=== PATIENT | male | born 1950 | race Caucasian/White ===

== ENCOUNTER 2018-10-29 04:03 | Inpatient (IN) | payer MEDICARE, BC ==
[~2018-10-29] VITALS: Ht 193 cm; Wt 111.4 kg
--- NOTE | ~2018-10-29 | EC ---
PATIENT:TORIBIO DOWNEY DATE OF SERVICE: 10/29/18 SEX: M MEDICAL RECORD: [id number] DATE OF : 54 LOCATION:D.MS [facility] AGE OF PATIENT: 68 ADMISSION DATE: 10/29/18 REFERRING PHYSICIAN: INTERPRETING PHYSICIAN: SHIRLEY PALOMO MD ECHOCARDIOGRAM REPORT ECHO CHARGES 4 ECHO COMPLETE Date: 10/30/18 CLINICAL DIAGNOSIS: CHEST PAIN, SURGERY CLEARENCE, HX CAD/STENTS ECHOCARDIOGRAPHIC MEASUREMENTS (adult normal given) AC root (d.<3.7cm) 3.5 cm LV Septum d (<1.2 cm> 1.3 cm Valve Excursion 2.2 cm LV Septum (systole) 1.5 cm Left Atria (s.<4.0cm> 3.8 cm LVPW d(<1.2cm) 1.2 cm RV (d.<2.3cm) 5.1 cm LVPW (sytole) 1.8 cm LV diastole(<5.6CM) 5.2 cm MV E-F(>70mm/sec) cm LV systole 3.6 cm LVOT Diameter 1.9 cm MV exc.(>10mm) 1.3 cm Est.ejection fraction (50-75%) % DOPPLER: LVIT cm/sec A 77.0 cm/sec E 68.0 cm/sec LA cm/sec RVSP 23 mmHg LVOT 101 cm/sec AOP1/2T m/s Asc. Ao 145 cm/sec RVOT 104 cm/sec RA cm/sec PA 143 cm/sec AV Gradient Peak 8.38 mmHg AV Mean 5.50 mmHg AV Area 2.0 cm MV Gradient Peak 3.49 mmHg MV Mean 1.80 mmHg MV Area cm COMMENTS: Tree Planter: Isaias VEGA Dog Track Kennel Manager: 1 Dr. Palomo TAPE# PACS Pericardial Effusion N DATE OF SERVICE: 10/30/2018 FINDINGS: 1. Left ventricular chamber size is within normal limits. Left ventricular systolic function is normal. Overall ejection fraction is estimated at 55%. 2. Left atrium is within normal limits at 3.8 cm. Right atrium and right ventricular chamber sizes are mildly dilated. 3. Valvular structures have normal structure and motion. 4. Doppler interrogation reveals trace mitral regurgitation and trace tricuspid regurgitation. No other valvular insufficiency or stenosis. Pulmonary systolic ECHOCARDIOGRAM REPORT [id number] NASREEN,MARLIN J pressure is normal, estimated at 23 mmHg. 5. No evidence of pericardial effusion or left ventricular thrombus. TRANSINT:[id number] Voice Confirmation ID: [id number] DOCUMENT ID: [id number] SHIRLEY PALOMO MD CC: [id number] DICTATION DATE: 10/30/181707 AUTOMATION MACHINE OPERATOR: 10/30/18 190 ADM IN [facility] [address] [id number]
--- NOTE | ~2018-10-29 | CN ---
PATIENT NAME:TORIBIO DOWNEY MEDICAL RECORD: [id number] : 54 LOCATION:D.MS [facility] ADMIT DATE: 10/29/18 ACCOUNT: [id number] CONSULTING PHYSICIAN: SHIRLEY ESTEVES MD REFERRING PHYSICIAN: YORDY LAM MD DATE OF CONSULTATION: 10/30/2018 DIAGNOSES: 1. Angina. 2. Coronary artery disease. 3. Preoperative evaluation. 4. Previous percutaneous transluminal coronary angioplasty stent. 5. Hyperlipidemia. HISTORY OF PRESENT ILLNESS: This is a gentleman who is followed at the [facility]. All his studies have been done at the [facility]. He does have a history of coronary artery disease. He has a chronic stable anginal picture. However, nuclear stress testing was done within the last month and this was normal. His blood pressure is in the 100s, his heart rate is in the sinus rhythm in the 90s. He is not having any chest pain currently. PHYSICAL EXAMINATION: GENERAL APPEARANCE: Well-nourished, well-developed, appears stated age. Level of distress, comfortable. PSYCHIATRIC: Mental status, alert, normal affect. Orientation, oriented to time, place and person. EYES: Lids and conjunctiva, noninjected. No discharge, no pallor. ENT: Lips, teeth, gums, normal dentition. Oropharynx, no cyanosis, no pallor. NECK: Carotid arteries, bilateral normal upstroke, no bruits, no thrills. JUGULAR VEINS: No jugular venous pressure or distention. CERVICAL LYMPH NODES: Nontender, nonenlarged. THYROID: Not enlarged. Nontender. No nodules. LUNGS: Respiratory effort, unlabored. CHEST: Normal curvature. No thoracic deformity. No chest wall tenderness. Percussion, resonant. Auscultation, clear. No wheezes, no rales, no rhonchi. CARDIOVASCULAR: Precordial exam, nondisplaced. No heaves or pericardial thrills. Rate and rhythm, regular. Heart sounds, normal S1, normal S2. No S3, no gallop, no rub. Systolic murmur, not heard. Diastolic murmur, not heard. EXTREMITIES: No cyanosis, no edema. Peripheral pulses, full and equal in all extremities, except as noted. No bruits appreciated. ABDOMEN: Soft, nondistended. Normal aorta. No bruit. Nontender. No masses. Liver, nontender, no hepatomegaly. Spleen, nontender, no splenomegaly. MUSCULOSKELETAL: No joint tenderness. No joint swelling. No erythema. NEUROLOGICAL: Normal gait, normal strength, normal tone. SKIN: Warm and dry. OVERALL IMPRESSION: Chronic stable angina, normal nuclear stress test recently, this puts in low risk from a cardiac standpoint with the surgery. TRANSINT:[id number] Voice Confirmation ID: [id number] DOCUMENT ID: [id number] CONSULT REPORT [id number] TORIBIO DOWNEY JEFFREY MD CC: [id number] DICTATION DATE: 10/30/18 1154 GRAIN DRIER OPERATOR: 10/30/18 1318 ADM IN [facility] [address] [id number]
[2018-10-29] MEDS ORDERED: NEURONTIN600 MG PO ×2 (04:11)
[2018-10-29] MEDS ORDERED: LIPITOR40 MG PO (04:12)
[2018-10-29 05:10] LABS: BASOPHILS 0.1 % (0-2); EOSINOPHILS 0.3 % (0-7); HEMATOCRIT 46.5 % (42.0-54.0); HEMOGLOBIN 15.7 g/dL (13.5-17.5); IMMATURE GRANULOCYTES 0.5 % (0-5); LYMPHOCYTES 12.5 % (15-50); MCH 30.3 pg (26.0-34.0); MCHC 33.8 g/dL (31.0-37.0); MCV 89.6 fL (80.0-100.0); MEAN PLATELET VOLUME 9.5 fL (7.4-10.4); MONOCYTES 4.9 % (2-11); NEUTROPHILS 81.7 % (40-80); PLATELET COUNT 299 10x3/uL (130-400); RBC 5.19 10x6/uL (4.20-6.10); RDW 13.4 % (11.5-14.5)
[2018-10-29 05:15] LABS: ALBUMIN 4.2 g/dL (3.4-5.0); ALKALINE PHOSPHATASE 166 U/L (46-116); ALT (SGPT) 46 U/L (10-68); BILIRUBIN - TOTAL 0.42 mg/dL (0.2-1.3); CALC OSMOLALITY 285 mosm/kg (275-300); CARBON DIOXIDE 27.9 mmol/L (21.0-32.0); CHLORIDE - SERUM 103 mmol/L (98-107); CREATININE - SERUM 1.2 mg/dL (0.6-1.3); GLUCOSE 130 mg/dL (74-106); POTASSIUM - SERUM 4.2 mmol/L (3.5-5.1); PROTEIN - SERUM 7.8 g/dL (6.4-8.2); SODIUM 140 mmol/L (136-145); UREA NITROGEN 27 mg/dL (7-18); eGFR NON AFRICAN AMERICAN 64 mL/min (90-120)
[2018-10-29 05:30] VITALS: BP 130/87
[2018-10-29 05:30] LABS: AMYLASE - SERUM 105 U/L (25-115); LIPASE 144 U/L (73-393)
[2018-10-29 05:35] LABS: TROPONIN-I < 0.017 ng/mL (0.000-0.060)
[2018-10-29 06:00] VITALS: BP 162/85
[2018-10-29 06:05] LABS: APPEARANCE CLEAR (CLEAR); BILIRUBIN NEGATIVE (NEGATIVE); COLOR YELLOW (YELLOW); GLUCOSE NEGATIVE (NEGATIVE); KETONE NEGATIVE (NEGATIVE); NITRITE NEGATIVE (NEGATIVE); PROTEIN NEGATIVE (NEGATIVE); SPECIFIC GRAVITY 1.025 (1.005-1.020); UROBILINOGEN NORMAL (NORMAL)
[2018-10-29 11:19] VITALS: BP 130/52; BMI 29.8
[2018-10-29 13:32] VITALS: BP 112/53
[2018-10-29 17:19] VITALS: BP 82/57
[2018-10-29 21:21] VITALS: Ht 193 cm; Wt 111.4 kg
[2018-10-29 21:47] VITALS: BP 108/66
[2018-10-30 01:23] VITALS: BP 120/75
[2018-10-30 04:53] VITALS: BP 100/48
[2018-10-30 07:52] LABS: HEMATOCRIT 37.1 % (42.0-54.0); HEMOGLOBIN 12.1 g/dL (13.5-17.5); MCH 29.2 pg (26.0-34.0); MCHC 32.6 g/dL (31.0-37.0); MCV 89.6 fL (80.0-100.0); MEAN PLATELET VOLUME 9.3 fL (7.4-10.4); PLATELET COUNT 239 10x3/uL (130-400); RBC 4.14 10x6/uL (4.20-6.10); WBC 22.2 10x3/uL (4.8-10.8)
[2018-10-30 07:58] LABS: ANION GAP 10.2 mmol/L (8-16); BILIRUBIN - TOTAL 1.64 mg/dL (0.2-1.3); CALCIUM 7.6 mg/dL (8.5-10.1); CARBON DIOXIDE 27.5 mmol/L (21.0-32.0); CREATININE - SERUM 1.2 mg/dL (0.6-1.3); POTASSIUM - SERUM 3.7 mmol/L (3.5-5.1); PROTEIN - SERUM 6.6 g/dL (6.4-8.2)
[2018-10-30 08:00] LABS: ALBUMIN 3.1 g/dL (3.4-5.0)
[2018-10-30 08:16] LABS: LYMPHOCYTES 7 % (15-50); MONOCYTES 10 % (2-11); NEUTROPHILS 79 % (40-80); PLATELET ESTIMATE NORMAL
[2018-10-30 08:39] VITALS: BP 142/70
[2018-10-30 13:13] VITALS: BP 109/48
[2018-10-30 17:36] VITALS: BP 106/60
[2018-10-30 20:50] VITALS: BP 130/62
[2018-10-31 00:50] VITALS: BP 130/52
[2018-10-31 04:47] VITALS: BP 126/60
[2018-10-31 06:33] LABS: BASOPHILS 0.1 % (0-2); EOSINOPHILS 0.4 % (0-7); HEMOGLOBIN 12.2 g/dL (13.5-17.5); IMMATURE GRANULOCYTES 0.3 % (0-5); LYMPHOCYTES 8.7 % (15-50); MCH 29.2 pg (26.0-34.0); MCV 88.5 fL (80.0-100.0); MEAN PLATELET VOLUME 9.5 fL (7.4-10.4); MONOCYTES 9.5 % (2-11); PLATELET COUNT 219 10x3/uL (130-400); RBC 4.18 10x6/uL (4.20-6.10); RDW 13.9 % (11.5-14.5); WBC 18.8 10x3/uL (4.8-10.8)
[2018-10-31 06:51] LABS: ALBUMIN 2.8 g/dL (3.4-5.0); BILIRUBIN - TOTAL 1.38 mg/dL (0.2-1.3); CALCIUM 8.1 mg/dL (8.5-10.1); CARBON DIOXIDE 24.6 mmol/L (21.0-32.0); CREATININE - SERUM 1.2 mg/dL (0.6-1.3); PROTEIN - SERUM 6.5 g/dL (6.4-8.2)
[2018-10-31 06:57] LABS: ANION GAP 14.5 mmol/L (8-16); POTASSIUM - SERUM 3.1 mmol/L (3.5-5.1)
[2018-10-31 09:48] VITALS: BP 120/57
[2018-10-31 12:08] VITALS: BP 100/69
--- NOTE | 2018-10-31 14:25 | MORECARE ---
CASE MANAGEMENT DISCHARGE SUMMARY PATIENT: TORIBIO DOWNEY UNIT: [id number] ADM DATE: 10/29/18 AGE: 68 : 52 SEX: M ROOM/BED: D.2240 AUTHOR: YVES QUARLES PHYSICIAN: REFERRING PHYSICIAN: YORDY LAM MD DATE OF SERVICE: 10/31/18 Discharge Plan Patient Name: TORIBIO DOWNEY [facility] [facility] 1950 Planned Disposition: Home Anticipated Discharge Date: 11/01/18 Discharge Date: Expected LOS: 3 Initial Reviewer: [email or web address] Initial Review Date: 10/31/2018 Generated: 10/31/18 3:25 pm DCPIA - Discharge Planning Initial Assessment Updated by [email or web address]: Kalina Peterson on 10/31/18 2:22 pm * Is the patient Alert and Oriented? Yes * How many steps to enter\exit or inside your home? 5/0 * PCP Dr. Mitchell at the [facility] * Pharmacy [facility] on [facility] * Preadmission Environment Home with Family * ADLs Independent * Equipment None * List name and contact numbers for known caregivers / representatives who currently or will assist patient after discharge: Reyna Marino [facility] - [phone] * Verbal permission to speak to the caregivers and representatives has been obtained from the patient. Yes * Community resources currently utilized None * Additional services required to return to the preadmission environment? No * Can the patient safely return to the preadmission environment? Yes * Has this patient been hospitalized within the prior 30 days at any hospital? No Patient Name: TORIBIO DOWNEY Page 23234 at 1425 All edits/amendments must be made on the electronic document DICTATION DATE: 10/31/181423 PAPER MACHINE BACKTENDER: SHADE 10/31/181423 RPT#: [id number] DC DATE: STATUS: ADM IN [facility] [address] [place] [address] END OF REPORT
--- NOTE | 2018-10-31 14:35 | MORECARE ---
CASE MANAGEMENT DISCHARGE SUMMARY PATIENT: TORIBIO DOWNEY UNIT: [id number] ADM DATE: 10/29/18 AGE: 68 : 52 SEX: M ROOM/BED: D.2240 AUTHOR: YVES QUARLES PHYSICIAN: REFERRING PHYSICIAN: YORDY LAM MD DATE OF SERVICE: 10/31/18 Discharge Plan Patient Name: TORIBIO DOWNEY Facility: [facility]:[place] : 1950 Planned Disposition: Home Anticipated Discharge Date: 11/01/18 Discharge Date: Expected LOS: 3 Initial Reviewer: [email or web address] Initial Review Date: 10/31/2018 Generated: 10/31/18 3:35 pm Comments DCP- Discharge Planning Updated by [email or web address]: Kalina Peterson on 10/31/18 1:[address] Patient Name: TORIBIO DOWNEY Admission Status: ER Accout number: [id number] Admission Date: 10-29-2018 : 1950 Admission Diagnosis: Attending: YORDY LAM Current LOS: 2 Anticipated DC Date: 11-01-2018 Planned Disposition: Home Primary Insurance: MEDICARE A & B Discharge Planning Comments: CM met with patient to complete initial dc planning assessment. CM educated patient on the CM role and verbal consent given by patient to complete assessment. Patient lives at home with his . At discharge patient plans to return and feels this is a safe discharge. CM discussed availability of home health, rehab services, and medical equipment. Patient denied known discharge needs at this time. CM will continue to follow and will assist as needed with dc plans/needs. Manager Utilization Review: Kalina Peterson DCPIA - Discharge Planning Initial Assessment Updated by [email or web address]: Kalina Peterson on 10/31/18 2:22 pm * Is the patient Alert and Oriented? Yes * How many steps to enter\exit or inside your home? 5/0 * PCP Dr. Mitchell at the [facility] * Pharmacy [facility] on [address] * Preadmission Environment Home with Family * ADLs Independent * Equipment None * List name and contact numbers for known caregivers / representatives who currently or will assist patient after discharge: Reyna peralta - [phone] * Verbal permission to speak to the caregivers and representatives has been obtained from the patient. Yes * Community resources currently utilized None * Additional services required to return to the preadmission environment? No * Can the patient safely return to the preadmission environment? Yes * Has this patient been hospitalized within the prior 30 days at any hospital? No Last DP export: 10/31/18 1:25 p Patient Name: TORIBIO DOWNEY Page 12379 at 1435 All edits/amendments must be made on the electronic document DICTATION DATE: 10/31/18 143 SUPERVISOR STITCHING DEPARTMENT: SHADE 10/31/18 1435 RPT#: [id number] DC DATE: STATUS: ADM IN [facility] [address] [place] [address] END OF REPORT
[2018-10-31 21:58] VITALS: BP 124/70
[2018-11-01 01:37] VITALS: BP 124/87
[2018-11-01 05:37] VITALS: BP 140/74
[2018-11-01 08:22] LABS: BASOPHILS 0 % (0-2); EOSINOPHILS 0 % (0-7); HEMATOCRIT 32.1 % (42.0-54.0); HEMOGLOBIN 10.8 g/dL (13.5-17.5); IMMATURE GRANULOCYTES 0.4 % (0-5); LYMPHOCYTES 4.7 % (15-50); MCH 29.3 pg (26.0-34.0); MCHC 33.6 g/dL (31.0-37.0); MEAN PLATELET VOLUME 9.4 fL (7.4-10.4); MONOCYTES 7.8 % (2-11); NEUTROPHILS 87.1 % (40-80); PLATELET COUNT 245 10x3/uL (130-400); RBC 3.69 10x6/uL (4.20-6.10); RDW 13.8 % (11.5-14.5); WBC 19.8 10x3/uL (4.8-10.8)
[2018-11-01 08:38] LABS: ALBUMIN 2.6 g/dL (3.4-5.0); ALKALINE PHOSPHATASE 97 U/L (46-116); BILIRUBIN - TOTAL 0.95 mg/dL (0.2-1.3); CALCIUM 7.9 mg/dL (8.5-10.1); CARBON DIOXIDE 27.7 mmol/L (21.0-32.0); CHLORIDE - SERUM 102 mmol/L (98-107); GLUCOSE 156 mg/dL (74-106); PROTEIN - SERUM 5.9 g/dL (6.4-8.2); SODIUM 138 mmol/L (136-145); eGFR NON AFRICAN AMERICAN 79 mL/min (90-120)
[2018-11-01 08:40] LABS: ALT (SGPT) 43 U/L (10-68); CALC OSMOLALITY 277 mosm/kg (275-300); POTASSIUM - SERUM 3.7 mmol/L (3.5-5.1); UREA NITROGEN 11 mg/dL (7-18)
[2018-11-01 09:51] VITALS: BP 127/79
[2018-11-01 12:00] VITALS: BP 179/95
[2018-11-01] MEDS ORDERED: CYMBALTA30 MG PO (14:15)
[2018-11-01] MEDS ORDERED: PROSCAR5 MG PO (14:16)
[2018-11-01] MEDS ORDERED: OMEPRAZOLE20 M1 PO (14:17)
[2018-11-01] MEDS ORDERED: ZANAFLEX2 M1 PO (14:18)
[2018-11-01] MEDS ORDERED: ASPIRIN325 MG PO (14:19)
[2018-11-01] MEDS ORDERED: MUCINEX600 MG PO (14:52)
[2018-11-01] MEDS ORDERED: TESSALON PERLE100 MG PO (14:52)
[2018-11-01] MEDS ORDERED: COLCRYS0.6 MG PO (14:53)
[2018-11-01] MEDS ORDERED: AUGMENTIN 875-11 TAB PO (14:54)
--- NOTE | 2018-11-01 15:10 | MORECARE ---
CASE MANAGEMENT DISCHARGE SUMMARY PATIENT: TORIBIO DOWNEY UNIT: [id number] ADM DATE: 10/29/18 AGE: 68 : 52 SEX: M ROOM/BED: D.2240 AUTHOR: YVES QUARLES PHYSICIAN: REFERRING PHYSICIAN: YORDY LAM MD DATE OF SERVICE: 11/01/18 Discharge Plan Patient Name: TORIBIO DOWNEY Facility: [facility]:[place] : 1950 Planned Disposition: Home Anticipated Discharge Date: 11/01/18 Discharge Date: Expected LOS: 3 Initial Reviewer: [email or web address] Initial Review Date: 10/31/2018 Generated: 11/01/18 4:09 pm Comments DCP- Discharge Planning Updated by [email or web address]: Kalina Peterson on 11/01/18 2:[address] Patient Name: TORIBIO DOWNEY Encounter No: [id number] : 1950 Primary Insurance: MEDICARE A & B Anticipated DC Date: 11-01-2018 Planned Disposition: Home External Planned Provider: : DCP follow-up note: Patient and family in agreement with discharge plan. No changes to plan. Case management will follow and assist as needed. Kalina Peterson DCP- Discharge Planning Updated by [email or web address]: Kalina Peterson on 10/31/18 1:[address] Patient Name: TORIBIO DOWNEY Admission Status: ER Accout number: [id number] Admission Date: 10-29-2018 : 1950 Admission Diagnosis: Attending: YORDY LAM Current LOS: 2 Anticipated DC Date: 11-01-2018 Planned Disposition: Home Primary Insurance: MEDICARE A & B Discharge Planning Comments: CM met with patient to complete initial dc planning assessment. CM educated patient on the CM role and verbal consent given by patient to complete assessment. Patient lives at home with his . At discharge patient plans to return and feels this is a safe discharge. CM discussed availability of home health, rehab services, and medical equipment. Patient denied known discharge needs at this time. CM will continue to follow and will assist as needed with dc plans/needs. Solar Sales Energy Advisor: Kalina Peterson DCPIA - Discharge Planning Initial Assessment Updated by [id number]: Kalina Peterson on 10/31/18 2:22 pm * Is the patient Alert and Oriented? Yes * How many steps to enter\exit or inside your home? 5/0 * PCP Dr. Mitchell at the [facility] * Pharmacy [facility] on [address] * Preadmission Environment Home with Family * ADLs Independent * Equipment None * List name and contact numbers for known caregivers / representatives who currently or will assist patient after discharge: Reyna peralta - [phone] * Verbal permission to speak to the caregivers and representatives has been obtained from the patient. Yes * Community resources currently utilized None * Additional services required to return to the preadmission environment? No * Can the patient safely return to the preadmission environment? Yes * Has this patient been hospitalized within the prior 30 days at any hospital? No Coverage Notice Reviewer: [email or web address] Ned Kalina Peterson Notice Issued Date-Time: 11/01/2018 15:04 Notice Type: IM Discharge Notice Notice Delivered To: Patient Relationship to Patient: Self Skid Strapper Name: Delivery Method: HAND - Hand Delivered Ayleen Days: Prior Verbal Notification: Recipient Understood Notice: Yes Recipient Signature: Yes Med Rec Note Co-signed by Attending: Coverage Notice Comment: IMM explained, signed by his per patient request, given, copy placed in MR Last DP export: 10/31/18 1:35 p Patient Name: TORIBIO DOWNEY Page 46625 at 1510 All edits/amendments must be made on the electronic document DICTATION DATE: 11/01/18 1509 SOLE SEWER HAND: SHADE 11/01/18 1509 RPT#: [id number] DC DATE: STATUS: ADM IN [facility] [address] [facility] [place] [address] END OF REPORT
[2018-11-01] MEDS ORDERED: COLACE100 MG PO (16:00)
[2018-11-01] MEDS ORDERED: HYDROCODON-ACE1 EAC7 PO (16:01)
--- NOTE | 2018-11-01 16:07 | OP ---
PATIENT NAME: TORIBIO DOWNEY MEDICAL RECORD: [id number] :54 LOCATION:D.MS [facility] ADMISSION DATE:10/29/18 SURGEON: DAISY LOCKHART MD DATE OF OPERATION: 10/31/2018 PREOPERATIVE DIAGNOSES: 1. Symptomatic gallstones. 2. Elevated liver function test. POSTOPERATIVE DIAGNOSES: 1. Symptomatic gallstones. 2. Elevated liver function test. 3. Acute cholecystitis. PROCEDURES: 1. Laparoscopic cholecystectomy. 2. Intraoperative cholangiography without immediate surgeon interpretation. 3. A 14-gauge core needle liver biopsy. SURGEON: Daisy Lockhart MD [facility] PHYSICIAN: None. BLOOD LOSS: Minimal. ANESTHESIA: General. COMPLICATIONS: None. The risks, possible complications, and alternatives to the procedure were explained to the patient. He elects to proceed. The discussion specifically included, but was not limited to, bleeding requiring an emergency reoperation, infection, common bile duct injury, intestinal injury. OPERATIVE COURSE: The patient was conveyed to the operating room electively on 10/31/2018. General anesthesia was induced by the anesthesia staff. The abdomen was sterilely prepped and draped. A small skin incision was accomplished in the left upper quadrant. A Veress needle was inserted through the skin incision into the peritoneal cavity. CO2 insufflation was begun. Once a sufficient pneumoperitoneum had been achieved, a 5-mm trocar was inserted through an incision in the right upper quadrant. Under direct internal vision utilizing a television camera, a 5-mm trocar was inserted in the left upper quadrant and another 5-mm trocar was inserted far laterally in the right upper quadrant and a 12-mm trocar was inserted through an incision at the umbilicus. The indication for the liver biopsy was elevated liver function tests. Under laparoscopic guidance, I percutaneously accessed the right upper quadrant utilizing a 14-gauge core biopsy device. Cores were obtained over the convexity of the liver. The biopsy sites were made hemostatic with electrocautery. I then advanced a cholangiogram trocar. I punctured the fundus of the gallbladder. I aspirated bile. I then injected dye. Real time cholangiographic images were obtained and these were sent to the radiologist for interpretation. OPERATIVE REPORT [id number] TORIBIO DOWNEY I then aspirated bile and withdrew the cholangiogram trocar. The gallbladder was grasped and retracted cephalad. The infundibulum was grasped and retracted laterally. Blunt dissection was begun in the triangle of Calot. Two cystic arteries and one cystic duct were identified. These were clipped multiply and divided between clips. The gallbladder was then excised from its bed in the liver. This was placed within an Endobag retrieval device and was withdrawn through the umbilical fascia defect. Then, 12-mm trocars were placed and the abdomen reinsufflated. I irrigated and aspirated the right upper quadrant. There was no bleeding even at low pressure of 8. The Yao-Ruby suture closure device and 0 Vicryl sutures were used to close the fascia at the umbilicus. All the trocars were removed and the abdomen desufflated. The skin at the umbilicus was closed with interrupted 4-0 Vicryl Rapide sutures. The other skin incisions were closed with interrupted intracuticular 3-0 Vicryls. Benzoin and Steri-Strips were applied. The patient was then extubated and conveyed to the post-anesthesia care unit where he was in stable condition. TRANSINT:[id number] Voice Confirmation ID: [id number] DOCUMENT ID: [id number] DAISY LOCKHART MD at 1607 CC: YORDY LAM [id number] DICTATION DATE: 10/31/18 142 PROCESS STRIPPER: 10/31/18 1450 ADM IN [address] [id number] [id number]
== END 2018-11-01 16:59 | disposition home or self-care (01) | DRG 419 ==
LOC: D.ER 04:03 → D.MS 08:22 → D.M2 08:22 → D.MS 08:24
PROVIDERS: Family Medicine; Surgery; ADMIT Family Medicine; ATTEND Family Medicine
PROC: 0FT44ZZ Resection of Gallbladder, Percutaneous Endoscopic Approach (ICD-10-PCS; principal; 2018-10-31 13:00)
DX: K80.00 Calculus of gallbladder with acute cholecystitis without obstruction (principal); I25.118 Atherosclerotic heart disease of native coronary artery with other forms of angina pectoris; E86.0 Dehydration; E11.65 Type 2 diabetes mellitus with hyperglycemia; E78.5 Hyperlipidemia, unspecified